=== PATIENT | male | born 1985 | race Caucasian/White ===

== ENCOUNTER 2018-05-05 00:56 | Emergency (ER) | payer MEDICAID ==
[~2018-05-05] VITALS: Ht 175.3 cm; Wt 82.0 kg
[2018-05-05] MEDS ORDERED: HYDROCODONE/ACETAMINOPHEN 5/325MG TABLET PO ONE (04:00)
[2018-05-05 14:23] VITALS: BP 115/65
== END 2018-05-05 14:26 | disposition home or self-care (01) ==
LOC: ER 00:56
DX: M79.661 Pain in right lower leg (principal); F17.200 Nicotine dependence, unspecified, uncomplicated; Z98.890 Other specified postprocedural states
CPT/HCPCS: 73552; 73562; 73590; 93971; 99284

== ENCOUNTER 2018-07-14 23:44 | Emergency (ER) | payer MEDICAID, OTHER ==
[~2018-07-14] VITALS: Ht 175.3 cm; Wt 77.0 kg
[2018-07-15 02:14] VITALS: BP 132/85
== END 2018-07-15 02:16 | disposition home or self-care (01) ==
LOC: ER 23:44
DX: Z00.00 Encounter for general adult medical examination without abnormal findings (principal)
CPT/HCPCS: 99283

== ENCOUNTER 2018-09-05 02:01 | Emergency (ER) | payer MEDICAID ==
[~2018-09-05] VITALS: Ht 177.8 cm; Wt 73.0 kg
[2018-09-05] MEDS ORDERED: SODIUM CHLORIDE 0.9% 1,000 ML IV ONE (02:46)
[2018-09-05 03:12] LABS: BASOPHILS % 0.5 % (0.0-2.0); EOSINOPHILS % 0.4 % (0.0-5.0); HEMATOCRIT. 30.7 % (42.0-52.0); HEMOGLOBIN. 9.9 g/dL (14.0-18.0); LYMPHOCYTES % 21.3 % (20.0-50.0); MEAN CORPUSCULAR HEMOGLOBIN 25.5 pg (28.0-32.0); MEAN PLATELET VOLUME 6.6 fl (7.4-10.4); MONOCYTES % 8.3 % (2.0-8.0); NEUTROPHILS % 69.5 % (40.0-76.0); PLATELET 454 x1000/uL (130-400); RED BLOOD CELL COUNT 3.89 mill/uL (4.7-6.1); RED CELL DISTRIBUTION WIDTH 16.2 % (11.6-14.6)
[2018-09-05 03:14] LABS: CHLORIDE 103 mEq/L (98-107)
[2018-09-05 03:17] LABS: PROTHROMBIN TIME 10.1 sec (9.1-11.1)
[2018-09-05 03:18] LABS: ETHANOL BLOOD < 10 mg/dL
[2018-09-05] MEDS ORDERED: CEFTRIAXONE 1 G PREMIX 50 ML IV ONE (04:15)
[2018-09-05 05:37] VITALS: BP 112/64
[2018-09-05 05:49] LABS: *AMPHETAMINES SCREEN URINE NEGATIVE (NEGATIVE); *BARBITURATES SCREEN URINE NEGATIVE (NEGATIVE); *BENZODIAZEPINES SCREEN URINE NEGATIVE (NEGATIVE); *COCAINE SCREEN URINE NEGATIVE (NEGATIVE); METHADONE URINE SCREEN NEGATIVE (NEGATIVE); OPIATES URINE SCREEN NEGATIVE (NEGATIVE); PHENCYCLIDINE URINE SCREEN NEGATIVE (NEGATIVE)
[2018-09-05 05:50] LABS: CANNABINOID URINE SCREEN NEGATIVE (NEGATIVE)
[2018-09-05 05:56] LABS: CLARITY URINE CLEAR (CLEAR); COLOR URINE YELLOW (YELLOW); KETONES URINE NEGATIVE (NEGATIVE); LEUKOCYTE ESTERASE URINE NEGATIVE (NEGATIVE); NITRITE URINE NEGATIVE (NEGATIVE); OCCULT BLOOD URINE NEGATIVE (NEGATIVE); PH URINE 5.5 (4.5-8.0); PROTEIN URINE NEGATIVE (NEGATIVE); SPECIFIC GRAVITY URINE 1.027 (1.005-1.030); UROBILINOGEN URINE 0.2 E.U./dL (0.2-1.0)
== END 2018-09-05 05:39 | disposition home or self-care (01) ==
LOC: ER 02:01
DX: M79.604 Pain in right leg (principal); L03.115 Cellulitis of right lower limb; D50.9 Iron deficiency anemia, unspecified; Z85.89 Personal history of malignant neoplasm of other organs and systems; Z98.890 Other specified postprocedural states
CPT/HCPCS: 36415; 80053; 80305; 81003; 83605; 84145; 84484; 85025; 85610; 85651; 86140; 87040; 93970; 96365; 99284; G0482; J0696; J7030

== ENCOUNTER 2018-09-10 22:06 | Emergency (ER) | payer MEDICAID ==
[~2018-09-10] VITALS: Ht 175.3 cm; Wt 78.0 kg
[2018-09-10] MEDS ORDERED: IBUPROFEN 600MG TABLET PO ONE (22:45)
[2018-09-10 23:03] VITALS: BP 128/76
== END 2018-09-10 23:43 | disposition left against medical advice (07) ==
LOC: ER 22:06
DX: G89.29 Other chronic pain (principal); M79.604 Pain in right leg; Z85.830 Personal history of malignant neoplasm of bone
CPT/HCPCS: 99283

== ENCOUNTER 2018-09-11 22:31 | Emergency (ER) | payer MEDICAID ==
[~2018-09-11] VITALS: Ht 177.8 cm; Wt 73.0 kg
[2018-09-11 22:45] VITALS: BP 158/84
== END 2018-09-12 08:06 | disposition left against medical advice (07) ==
LOC: ER 22:31
DX: M79.604 Pain in right leg (principal); Z53.21 Procedure and treatment not carried out due to patient leaving prior to being seen by health care provider

== ENCOUNTER 2018-10-26 09:52 | Emergency (ER) | payer MEDICAID ==
[~2018-10-26] VITALS: Ht 182.9 cm; Wt 75.0 kg
[2018-10-26 10:01] VITALS: BP 134/87
== END 2018-10-26 16:40 | disposition left against medical advice (07) ==
LOC: ER 10:07
DX: M79.604 Pain in right leg (principal); Z59.0 Homelessness; Z85.038 Personal history of other malignant neoplasm of large intestine; Z85.830 Personal history of malignant neoplasm of bone
CPT/HCPCS: 99283